=== PATIENT | male | born 1960 | race Caucasian/White ===

== ENCOUNTER → 2018-08-15 11:35 | Outpatient (CLI) | payer OTHER, SELFPAY ==
--- NOTE | 2018-08-15 11:50 | RAD_ITS ---
STUDY: X-RAY CHEST REASON FOR EXAM: Male, 57 years old. Cough and shortness of breath TECHNIQUE: PA and lateral views of the chest. COMPARISON: None. FINDINGS: The lungs are clear and expanded. There is no demonstrated pleural abnormality. Normal size heart. Normal mediastinum and evin. Normal visualized pulmonary arteries. There is atherosclerotic calcification of the aortic arch . Normal visualized thoracic spine. Normal visualized ribs, clavicles, and shoulders. There is no demonstrated abnormality of the visualized soft tissue structures of the upper abdomen. RAD/Chest PA and Lateral IMPRESSION: Normal x-ray examination of the chest. Electronically Signed: Omar Orellana MD at 3:23 EST Tel , Service support ,
--- OUTSIDE RECORDS SUMMARY | 2018-10-10 10:28 | XMS RPT_ITS ---
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 [facility] (current) drug [place] therapy / Repository Z79.899(ICD-10) PROCEDURES PROCEDURES No Procedure Records FoundRESULTS RESULTS CHEST PA AND LATERAL Observed: 08/15/2018 Status: F Source: [facility] 11:43 AM [facility] REPOSITORY [facility] Imaging Services [address] [place] [address] Chest PA and Lateral MR#: [id number] Acct: [id number] Name: RAE BYERS Rep #: [id number] : 1960 M 57 From: Omar Orellana MD PCP: Corby Suarez Status: REG CLI Study: Chest PA and Lateral Date of Exam: 08/15/18 Exam# [id number] Ordering Dr: Fabio Ca MD STUDY: X-RAY CHEST REASON FOR EXAM: Male, 57 years old. Cough and shortness of breath TECHNIQUE: PA and lateral views of the chest. COMPARISON: None. FINDINGS: The lungs are clear and expanded. There is no demonstrated pleural abnormality. Normal size heart. Normal mediastinum and evin. Normal visualized pulmonary arteries. There is atherosclerotic calcification of the aortic arch . Normal visualized thoracic spine. Normal visualized ribs, clavicles, and shoulders. There is no demonstrated abnormality of the visualized soft tissue structures of the upper abdomen. RAD/Chest PA and Lateral IMPRESSION: Normal x-ray examination of the chest. Electronically Signed: Omar Orellana MD at 3:23 EST Tel , Service support , CC: Corby Suarez; Fabio Ca MD Computer Mechanic: Signed COMP METABOLIC PANEL Collected: 03/27/2018 Status: F Source: [place] 8:00 AM [facility] REPOSITORY TYPE CODE TESTS RESULT OUT OF REFERENCE UNITS RANGE LAB TP 6.3-8.0 g/dL Protein, Total 6.3 LAB ALB 3.9-4.9 g/dL Albumin 4.2 LAB CA 8.5-10.2 mg/dL Calcium, Total 8.7 LAB TBIL 0.2-1.3 mg/dL Bilirubin, Total 0.2 LAB ALKP 36-108 U/L Alkaline Phosphatase 41 LAB AST 14-40 U/L AST 23 LAB GLU 74-99 mg/dL Glucose 86 Result Comment: The [place] [employer] Association (ADA) provides guidance for cutoff values for fasting glucose and random glucose. The ADA defines fasting as no caloric intake for at least 8 hours. Fas ting plasma glucose results between 100 to 125 mg/dL indicate increased risk for diabetes (prediabetes). Fasting plasma glucose results greater than or equal to 126 mg/dL meet the criteria for diagnosis of diabetes. In the absence of unequivocal hyperglycemia, results should be confirmed by repeat testing. In a patient with classic symptoms of hyperglycemia or hyperglycemic crisis, random plasma glucose results greater than or equal to 200 mg/dL meet the criteria for diagnosis of diabetes. Reference: Standards of Medical Care in Diabetes 2016, [place] [employer]. Diabetes Care. 2016.39(Suppl 1). LAB BUN 9-24 mg/dL BUN High 27 LAB CRET 0.73-1.22 mg/dL Creatinine 0.94 LAB NA 136-144 mmol/L Sodium 139 LAB K 3.7-5.1 mmol/L Potassium 4.4 LAB CL 97-105 mmol/L Chloride High 108 LAB CO2 22-30 mmol/L CO2 24 LAB AGAP 9-18 mmol/L Low Anion Gap 7 LAB ALT 10-54 U/L ALT 18 LAB GFRAA eGFR- Amer. >60 LAB GFRNAA . eGFR-All Other Races >60 Result Comment: eGFR (Estimated GFR) Units of measure: mL/min/1.73 meters squared eGFR is derived from the reexpressed MDRD Study equation using the following parameters: serum creatinine, age, gender and race. The creatinine assay has been calibrated to be traceable to IDMS. An eGFR <60 mL/min/1.73m2 for >3 months is consistent with chronic kidney disease. Refer to KDOQI guidelines for clinical interpretation. In patients with unstable renal function, e.g. those with acute kidney injury, the eGFR may not accurately reflect actual GFR. Performed By: #### CMP #### [facility] [address] [place], [place] [address] OBSOLETE Observed: 09/25/2017 Status: COMPLETED Source: [place] 12:00 AM [facility] REPOSITORY Refill (INTMWS) RAE BEYRS ([id number]) 1960 M Date Time Provider Department 09/25/17 Corby SUAREZ) INTMWS During your visit today, we recorded the following information about you: Danelle Crook LPN 09/25/2017 12:43 PM Signed Patient has been identified by name and date of : Yes Pending Prescriptions Disp Refills DOXEPIN 25 MG CAPSULE 90 capsule 1 Sig: TAKE 1 CAPSULE DAILY STEVIE: Yes RX INSTRUCTIONS: Pharmacy initiated this request. No need to notify patient. Danelle Crook LPN Allergies As of Date: 09/25/2017 (No Known Allergies) Date Reviewed: 07/15/2017 Reviewed by: Manju Busch Ma - Fully Assessed Reason for Visit: Refill Request [94] Order(s):doxepin capsule 25 mgTAKE 1 CAPSULE DAILYDisp: 90 capsuleRfl: 1 Prescriptions as of 09/25/2017 Sig: DOXEPIN 25 MG CAPSULE TAKE 1 CAPSULE DAILY MELOXICAM 15 MG TABLET Take 1 tablet by mouth once d* TAMSULOSIN 0.4 MG CAPSULE Take 1 capsule by mouth twice* SILDENAFIL 50 MG TABLET Take 1 tablet by mouth. TAKE * LORATADINE 10 MG TABLET Take 10 mg by mouth once lexi* HYDROCODONE 5 MG-ACETAMINOPHE* Take 1 tablet by mouth every * METHOCARBAMOL 500 MG TABLET Take 1 tablet by mouth four t* TRIAMCINOLONE ACETONIDE 0.1 %* Apply to affected area daily * CPAP * CHOLECALCIFEROL (VITAMIN D3) * Take 1 capsule by mouth once * Problem List As Of Date 09/25/2017 Noted Resolved HYPERLIPIDEMIA NEC/NOS [E78.5] PNEUMONIA, ORGANISM NOS [J18.9] BPH W/O URINARY OBS/LUTS [N40.0] NOCTURIA [R35.1] PLANTAR FIBROMATOSIS [M72.2] INVALID FOR* Diverticulitis of colon [K57.32] INVALID FOR* Colon polyp [K63.5] INVALID FOR* Actinic Keratoses (Premalignt AK's) [L57.0] INVALID FOR* Irritated//Inflamed Seborrheic Keratosis [L82.0]INVALID FOR* Atypical Nevus of lower mid to mid lower back: *INVALID FOR* Actinic skin damage [L57.8] INVALID FOR* Solar Lentigines [L81.4] INVALID FOR* Melanocytic nevi of trunk [D22.5] INVALID FOR* Other Seborrheic Keratoses [L82.1] INVALID FOR* Cutaneous skin tags [L91.8] INVALID FOR* 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 Disc: Reason for discontinue is not on file. Encounter Status:Closed by Corby SUAREZ PA-C on 09/25/17 OBSOLETE Observed: 09/24/2017 Status: COMPLETED Source: [place] 12:00 AM [facility] REPOSITORY Refill (KANDY) RAE BYERS ([id number]) 1960 M Date Time Provider Department 09/24/17 CARLY SHELDON During your visit today, we recorded the following information about you: Manju Busch Ma 09/24/2017 8:08 AM Signed Patient has been identified by name and date of : Yes Pending Prescriptions Disp Refills MELOXICAM 15 MG TABLET 90 tablet 0 Sig: Take 1 tablet by mouth once daily. STEVIE: No RX INSTRUCTIONS: Patient aware RX will be sent to pharmacy. No need to notify patient. Manju Busch Ma Allergies As of Date: 09/24/2017 (No Known Allergies) Date Reviewed: 07/15/2017 Reviewed by: Manju Busch Ma - Fully Assessed Reason for Visit: Refill Request [94] Order(s):meloxicam (MOBIC) 15 mg tabletTake 1 tablet by mouth once daily.Disp: 90 tabletRfl: 0 Prescriptions as of 09/24/2017 Sig: MELOXICAM 15 MG TABLET Take 1 tablet by mouth once d* TAMSULOSIN 0.4 MG CAPSULE Take 1 capsule by mouth twice* SILDENAFIL 50 MG TABLET Take 1 tablet by mouth. TAKE * LORATADINE 10 MG TABLET Take 10 mg by mouth once lexi* HYDROCODONE 5 MG-ACETAMINOPHE* Take 1 tablet by mouth every * METHOCARBAMOL 500 MG TABLET Take 1 tablet by mouth four t* DOXEPIN 25 MG CAPSULE Take 1 capsule by mouth once * TRIAMCINOLONE ACETONIDE 0.1 %* Apply to affected area daily * CPAP * CHOLECALCIFEROL (VITAMIN D3) * Take 1 capsule by mouth once * Problem List As Of Date 09/24/2017 Noted Resolved HYPERLIPIDEMIA NEC/NOS [E78.5] PNEUMONIA, ORGANISM NOS [J18.9] BPH W/O URINARY OBS/LUTS [N40.0] NOCTURIA [R35.1] PLANTAR FIBROMATOSIS [M72.2] INVALID FOR* Diverticulitis of colon [K57.32] INVALID FOR* Colon polyp [K63.5] INVALID FOR* Actinic Keratoses (Premalignt AK's) [L57.0] INVALID FOR* Irritated//Inflamed Seborrheic Keratosis [L82.0]INVALID FOR* Atypical Nevus of lower mid to mid lower back: *INVALID FOR* Actinic skin damage [L57.8] INVALID FOR* Solar Lentigines [L81.4] INVALID FOR* Melanocytic nevi of trunk [D22.5] INVALID FOR* Other Seborrheic Keratoses [L82.1] INVALID FOR* Cutaneous skin tags [L91.8] INVALID FOR* 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 Medications Discontinued During This Encounter meloxicam (MOBIC) 15 mg tablet 30 t* 0 08/19/2017 09/24/2017 Route: ORAL Sig: Take 1 tablet by mouth once daily. Disc: Reason for discontinue is not on file. Encounter Status:Closed by BERTRAM ONEIL PA-C on 09/24/17 ALLERGIES ALLERGIES DATE TYPE / CODE NAME / CODE REACTION SEVERITY SOURCE Drug NO KNOWN [facility] Class/14469 ALLERGIES [facility] 1003(SNOMED Repository CT) ENCOUNTERS ENCOUNTERS ADMIT/DISCHARGE ACCOUNT ADMITTING ENCOUNTER LOCATION SOURCE NUMBER CLASS 08/15/2018 [id number] [facility] ing:RAD Repository 03/27/2018/03/27/[id number] Repository PAYERS PAYERS ENCOUNTER GUARANTOR PAYER SUBSCRIBER SOURCE 08/15/2018 RAE Levi Primary RAEZoraida Davidson [id number] Insurance:MEDICAL COCHR[place]OB: [facility] [id number] Number: Repository [id number]: [phone] [id number] [phone] () Date:9280-22-19LL [address] [place] [id number]: 08/15/2018 Secondary [facility]:SELF PAY [place] Number: Effective Repository Date:2018-08-15
--- OUTSIDE RECORDS SUMMARY | 2018-10-10 10:28 | XMS RPT_ITS ---
:1960 Author Organization [employer] Address [address] [place] [address] Phone Care Team Providers Name Role Phone Lola Dumont MD Unavailable Reason for Visit Reason For Visit Description Start Date Postop - 1st visit Preliminary reason for visit data, not yet signed by the author as of lower back post Right L4-L5 transforaminal epidural steroid injection on 03/28/2018 Preliminary reason for visit data, not yet signed by the author as of Chief Complaint Chief Complaint Description Start Date lower back post Right L4-L5 transforaminal epidural steroid injection on 03/28/2018 Preliminary chief complaint data, not yet signed by the author as of Instructions Instruction Description Start Date CompletedPlease follow-up with Primary Care Physician or It Support Analyst for treatment or adjustment of medication regarding elevated blood pressure.Patient advised to follow-up with Primary Care Physician for BMI management. Plan of Care Type Date Detail Appointment 07:50 AM Lola Dumont MD, [address] [facility], [place], [address], Patient education \cps-[email or web address]\[email or web address]\ht n.pdf Medications Medication Instructions Start Stop Generic Name NDC Provider Date Date PRESERVISION takes one daily / MULTIPLE [id number] Lola Turner AREDS 2+MULTI 11 VITAMINS-MINERALS Julia HAYS VIT CAPS TYLENOL 8 HOUR takes one daily / ACETAMINOPHEN 21080515241 Lola Turner ARTHRITIS PAIN 08 Julia HAYS 650 MG CR-TABS MELOXICAM 15 MG take 1 tablet / MELOXICAM 51144974688 Lizette TABS once daily 11 [place] GROVE WORKER CLARITIN 10 MG takes 1 tablet / LORATADINE 42327972311 Lizette TABS as needed 08 Mera GROVE WORKER DOXEPIN HCL 25 takes 1 capsule / DOXEPIN HCL 01848514614 Lizette MG CAPS at bedtime 08 Mera GROVE WORKER VITAMIN D3 1000 takes 1 tablet / CHOLECALCIFEROL 95004723818 Lizette UNIT TABS once daily 08 Mera GROVE WORKER FLOMAX 0.4 MG takes 1 capsule / TAMSULOSIN HCL 09218261314 Lizette CAPS twice daily 08 Mera GROVE WORKER Conditions or Problems Problem Name Problem Onset Status Entry Provider Comment Standard Annotate Code Date Date Description Lumbar disc 525967512 Active Lola A 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 Disc 18308671 Active Lola A 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 Julia HAYS lumbar , lumbar intervertebral disc Lumbar 08544690 Active Lola A Spinal stenosis foraminal (SNOMED CT) /10/24 Julia HAYS of lumbar stenosis region Lumbar 802328168 Active Lola A Lumbar radiculopath (SNOMED CT) 10/24 Julia HAYS radiculopathy y, right Allergies, Adverse Reactions, Alerts Allergy Name Reaction Start Date Severity Status Provider Description SEASONAL Critical Active Lola Dumont MD Social History Concept Description Observation Name Observation Value Units Start Date Employment detail OCCUPATION#1 Construction Carpet Installer Helper Preliminary social history data, not yet signed by the author as of Vital Signs Date Name Value Unit Description BMI (Body Mass 31.25 kg/m2 Body Mass Index Index) [Ratio] Preliminary vital sign data, not yet signed by the author as of BP Diastolic 89 mm[Hg] blood pressure, diastolic Preliminary vital sign data, not yet signed by the author as of BP Diastolic 84 mm[Hg] blood pressure, diastolic, second observation Preliminary vital sign data, not yet signed by the author as of BP Systolic 142 mm[Hg] blood pressure, systolic Preliminary vital sign data, not yet signed by the author as of BP Systolic 159 mm[Hg] blood pressure, systolic, second observation Preliminary vital sign data, not yet signed by the author as of Heart Rate 77 /min pulse rate E&M Preliminary vital sign data, not yet signed by the author as of Height 70 [in_us] height E&M Preliminary vital sign data, not yet signed by the author as of Height 178 cm height in centimeters E&M Preliminary vital sign data, not yet signed by the author as of Weight Measured 217 [lb_av] weight E&M Preliminary vital sign data, not yet signed by the author as of Weight Measured 99 kg weight in kilograms E&M Preliminary vital sign data, not yet signed by the author as of Results Date Name Value Unit Range Flag Description Office Visit: Postop - 1st visit, Rm: PT2 MEDS REVIEW Done Documentation of current medications (procedure) Preliminary observation data, not yet signed by the author as of Preliminary observation data, not yet signed by the author as of MRI HX of the lumbar MRI (magnetic spine on resonance 09/20/2016 at imaging) history [facility] Preliminary observation data, not yet signed by the author as of XRAY HX of the lumbar xray history spine on 08/23/2016 at [facility] Preliminary observation data, not yet signed by the author as of Clinical Summary: HMSPatientID OOP account number Procedures Code Procedure Name Date Entry Date G8731 Pain assessment documented as negative - follow-up not required G8427 Current medications documented 1036F Tobacco screening was negative - non user G8417 BMI documented as above normal parameters - follow-up documented G8950 Blood pressure outside of normal parameters - follow-up documented [id number] Patient Encounter Medications Administered No information available. Immunizations No information available. Advance Directives There may be information available, but it has not been provided by the sender. Assessments There may be information available, but it has not been provided by the sender. Review of Systems There may be information available, but it has not been provided by the sender. Family History There may be information available, but it has not been provided by the sender. History of Past Illness There may be information available, but it has not been provided by the sender. History of Present Illness There may be information available, but it has not been provided by the sender.
--- OUTSIDE RECORDS SUMMARY | 2018-10-10 10:28 | XMS RPT_ITS ---
:1960 Author Organization [employer] Address [address] [place] [address] Phone Care Team Providers Name Role Phone Lola Dumont MD Unavailable Reason for Visit Reason For Visit Description Start Date Postop - 1st visit Preliminary reason for visit data, not yet signed by the author as of lower back post Right L4-5 transforaminal epidural steroid injection on 01/17/2018 Preliminary reason for visit data, not yet signed by the author as of Chief Complaint Chief Complaint Description Start Date lower back post Right L4-5 transforaminal epidural steroid injection on 01/17/2018 Preliminary chief complaint data, not yet signed by the author as of Instructions Instruction Description Start Date CompletedPatient advised to follow-up with Primary Care Physician for BMI management. Plan of Care Type Date Detail Appointment 11:50 AM Lola Dumont MD, [address] [facility], [place], [address], Medications Medication Instructions Start Stop Generic Name NDC Provider Date Date PRESERVISION takes one daily / MULTIPLE [id number] Lola Turner AREDS 2+MULTI 11 VITAMINS-MINERALS Julia HAYS VIT CAPS TYLENOL 8 HOUR takes one daily / ACETAMINOPHEN 27235473811 Lola Turner ARTHRITIS PAIN 08 Julia HAYS 650 MG CR-TABS MELOXICAM 15 MG take 1 tablet / MELOXICAM 09782152189 Lizette TABS once daily 11 [place] MARBLE [employer] GRANITE POLISHER CLARITIN 10 MG takes 1 tablet / LORATADINE 66955163879 Lizette TABS as needed 08 Mera NOLASCO DOXEPIN HCL 25 takes 1 capsule 2016/12/ DOXEPIN HCL 78147151658 Lizette MG CAPS at bedtime Mera MARBLE [employer] GRANITE POLISHER VITAMIN D3 1000 takes 1 tablet / CHOLECALCIFEROL 38135744126 Ilzette UNIT TABS once daily 08 Mera [employer]BLE [employer] GRANITE POLISHER FLOMAX 0.4 MG takes 1 capsule / TAMSULOSIN HCL 96753269990 Lizette CAPS twice daily 08 Mera MARBLE AND GRANITE POLISHER Conditions or Problems Problem Name Problem Onset Status Entry Provider Comment Standard Annotate Code Date Date Description Lumbar disc 877403405 Active Lola A 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 Disc 57441889 Active Lola A 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 Julia HAYS lumbar , lumbar intervertebral disc Lumbar 47985456 Active Lola A Spinal stenosis foraminal (SNOMED CT) 10/24 Julia HAYS of lumbar stenosis region Lumbar 084048433 Active Lola A Lumbar radiculopath (SNOMED CT) 10/24 Julia HAYS radiculopathy y, right Allergies, Adverse Reactions, Alerts Allergy Name Reaction Start Date Severity Status Provider Description SEASONAL Critical Active Lola Dumont MD Social History Concept Description Observation Name Observation Value Units Start Date 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 social history data, not yet signed by the author as of Vital Signs Date Name Value Unit Description BMI (Body Mass 29.66 kg/m2 Body Mass Index Index) [Ratio] Preliminary vital sign data, not yet signed by the author as of BP Diastolic 79 mm[Hg] blood pressure, diastolic Preliminary vital sign data, not yet signed by the author as of BP Systolic 129 mm[Hg] blood pressure, systolic Preliminary vital sign data, not yet signed by the author as of Heart Rate 67 /min pulse rate E&M Preliminary vital sign data, not yet signed by the author as of Height 70 [in_us] height E&M Preliminary vital sign data, not yet signed by the author as of Height 178 cm height in centimeters E&M Preliminary vital sign data, not yet signed by the author as of Weight Measured 206 [lb_av] weight E&M Preliminary vital sign data, not yet signed by the author as of Weight Measured 94 kg weight in kilograms E&M Preliminary vital [...] author as of MRI HX of the Lumbar MRI (magnetic spine on resonance 09/20/2016 at [facility]) history [facility] Preliminary observation data, not yet signed by the author as of XRAY HX of the Lumbar xray history spine on 08/23/2016 at [facility] Preliminary observation data, not yet signed by the author as of Clinical Summary: HMSPatientID OOP account number Clinical Lists Update: Preload Extended SMOK STATUS former smoker Tobacco smoking status NHIS Procedures Code Procedure Name Date Entry Date CPT-72619 Physical Therapy G8509 Pain assessment documented as positive - no follow-up/reason not given G8427 Current medications documented 1036F Tobacco screening was negative - non user G8417 BMI documented as above normal parameters - follow-up documented G8783 Blood pressure within normal parameters - no follow-up required [id number] Patient Encounter Medications Administered No information available. [...]
== END ==
PROVIDERS: Family Provider Physician Assistant; PCP Physician Assistant; Referring Provider Internal Medicine Pulmonary Disease; Visit Provider Internal Medicine Pulmonary Disease
DX: R05 Cough (principal)
CPT/HCPCS: 71046